=== PATIENT | male | born 1965 | race American Indian/Alaskan Native ===

== ENCOUNTER 2017-03-29 08:00 | Outpatient (CLI) | payer BC ==
--- NOTE | 2017-03-29 13:43 | Cat Scan Report ---
CT CHEST, ABDOMEN AND PELVIS WITH CONTRAST: 03/29/17 08:00:00 CLINICAL: Colon cancer restaging. Cancer of the rectosigmoid junction. COMPARISON: 05/31/16 TECHNIQUE: Volumetric acquisition and 1.25 millimeter scan reconstructions after the uneventful intravenous injection of 100 cc of Omnipaque 300. Consent was obtained prior to the administration of the contrast. Oral contrast was also given. FINDINGS: Chest: The lungs are clear. No pulmonary nodule or mass. Normal aorta, heart and pulmonary arteries. Normal esophagus and trachea. No mediastinal or hilar lymphadenopathy.No axillary or supraclavicular lymphadenopathy. Abdomen: Normal liver, bile ducts and gallbladder. No liver mass. Normal stomach, duodenum, pancreas and spleen. A 1.4 cm right upper pole renal cyst and otherwise normal kidneys. The renal collecting systems and ureters are nondilated. Normal adrenal glands. Normal aorta and inferior vena cava. No lymphadenopathy.No ascites.Stable small umbilical hernia containing small bowel and no bowel incarceration. The small bowel is otherwise normal. Normal ascending, transverse and descending colon. The appendix is normal. Pelvis: Normal urinary bladder and rectum.A normal rectosigmoid anastomosis. Mild sigmoid diverticulosis but no diverticulitis. No pelvic mass or lymphadenopathy. Bone windows demonstrate no suspicious bone lesion. IMPRESSION:1. Negative study with no evidence of metastasis. 2. Stable small umbilical hernia containing small bowel.
== END 2017-03-29 08:01 | disposition home or self-care (01) ==
LOC: SPVIMAG 08:00
PROVIDERS: ATTEND Internal Medicine Hematology
DX: C19 Malignant neoplasm of rectosigmoid junction (principal); N28.1 Cyst of kidney, acquired; K42.9 Umbilical hernia without obstruction or gangrene; K63.89 Other specified diseases of intestine; K57.30 Diverticulosis of large intestine without perforation or abscess without bleeding
CPT/HCPCS: 71260; 74177; Q9967

== ENCOUNTER 2018-04-11 08:25 | Outpatient (CLI) | payer BC ==
[2018-04-11 08:57] LABS: Blood Urea Nitrogen 15 mg/dL (9-20)
--- NOTE | 2018-04-11 11:31 | Cat Scan Report ---
CT CHEST WITH CONTRAST: HISTORY: Malignant neoplasm of retrosigmoid junction. COMPARISON: 03/29/17. TECHNIQUE: Helical CT in 1.25mm intervals following IV contrast. Sagittal and coronal reformatted images. FINDINGS: Thyroid gland: Normal. Tracheobronchial tree: Normal. Esophagus: Normal. Heart: Normal. Pericardium: Normal. Mediastinum: Normal. Lung Gallo: Normal. Pleural Spaces: Normal. Musculoskeletal: Normal. IMPRESSION: Unremarkable CT chest with contrast. No change since 03/29/17. No evidence for disease metastasis.
--- NOTE | 2018-04-11 11:36 | Cat Scan Report ---
CT ABDOMEN PELVIS WITH CONTRAST: HISTORY: Malignant neoplasm of rectosigmoid junction. COMPARISON: 03/29/17. TECHNIQUE: Helical CT in 1.25mm intervals following IV contrast. Sagittal and coronal reconstructions. FINDINGS: Liver: Normal. Biliary system: Normal. Pancreas: Normal. Spleen: Normal. Kidneys/ureters/bladder: 1.4 cm cyst at the superior pole of the right kidney is unchanged. Otherwise the kidneys, ureters and bladder are unremarkable. Adrenal glands: Normal. Aorta: Normal. Intestines: Surgical suture line near the rectosigmoid junction is intact. No recurrent mass is appreciated in this area. The bowel loops are normal caliber and wall thickness throughout. No evidence for recurrent mass or inflammatory changes. Appendix: Normal. Pelvic viscera: Normal. Ascites: None. Adenopathy: None. Musculoskeletal: Normal. IMPRESSION: No evidence for recurrent or metastatic disease in the abdomen or pelvis. No change since 03/29/17.
== END 2018-04-11 08:26 | disposition home or self-care (01) ==
LOC: CT 08:25
PROVIDERS: ATTEND Internal Medicine Hematology
DX: C19 Malignant neoplasm of rectosigmoid junction (principal); I10 Essential (primary) hypertension; E78.00 Pure hypercholesterolemia, unspecified
CPT/HCPCS: 36415; 71260; 74177; 82565; 84520; Q9967